=== PATIENT | female | born 1985 | race Caucasian/White ===

== ENCOUNTER 2017-11-27 13:47 | Emergency (ER) | payer SELFPAY ==
[2017-11-27] MEDS ORDERED: ACETAMINOPHEN 325 MG TABLET PO ONE (14:10)
[2017-11-27] MEDS ORDERED: LIDOCAINE 1% INJ-PF (10 MG/ML) 30 ML SDV INFIL ONE (14:41)
--- NOTE | 2017-11-27 14:43 | ER Document Report ---
ED Medical Screen (RME) - General Chief Complaint: Finger Injury Stated Complaint: LEFT MIDDLE FINGER INJURY Time Seen by Provider: 11/27/17 14:41 Notes: pt cut finger with utility knife TRAVEL OUTSIDE OF THE [place] IN LAST 30 DAYS: No - Related Data Allergies/Adverse Reactions: No Known Allergies Allergy (Unverified 11/27/17 14:04) Past Medical History - Social History Chew tobacco use (# tins/day): No Frequency of alcohol use: None Drug Abuse: None Renal/ Medical History: Denies: Hx Peritoneal Dialysis Physical Exam - Vital signs Vitals: Temp Pulse Resp BP Pulse Ox 97.8 F 62 28 H 127/72 H 98 11/27/17 14:04 11/27/17 14:04 11/27/17 14:04 11/27/17 14:04 11/27/17 14:04 Course - Vital Signs Vital signs: Temp Pulse Resp BP Pulse Ox 97.8 F 62 28 H 127/72 H 98 11/27/17 14:04 11/27/17 14:04 11/27/17 14:04 11/27/17 14:04 11/27/17 14:04
[2017-11-27] MEDS ORDERED: HYDROCODONE/ACETAMINOPHEN 5-325 MG TABLET PO ONE (14:50)
--- NOTE | 2017-11-27 14:54 | ER Document Report ---
HPI - HPI Onset: Just prior to arrival Onset/Duration: Sudden Quality of pain: Sharp Pain Level: 4 Context: Patient states that she cut her left fourth finger with a utility knife while at home. Patient states that her tetanus is currently up-to-date. Associated Symptoms: Other - Finger laceration Exacerbated by: Denies Relieved by: Denies Similar symptoms previously: No Recently seen / treated by doctor: No - ROS ROS below otherwise negative: Yes Systems Reviewed and Negative: Yes All other systems reviewed and negative - CONSTITUTIONAL Constitutional: DENIES: Fever - MUSCULOSKELETAL Musculoskeletal: REPORTS: Extremity pain - DERM Skin Color: Normal Skin Problems: Laceration Past Medical History - General Information source: Patient - Social History Smoking Status: Current Every Day Smoker Chew tobacco use (# tins/day): No Frequency of alcohol use: None Drug Abuse: None Occupation: [employer] Lives with: Family Family History: Reviewed & Not Pertinent Patient has suicidal ideation: No Patient has homicidal ideation: No - Medical History Medical History: Negative Renal/ Medical History: Denies: Hx Peritoneal Dialysis Surgical Hx: Negative Vertical Provider Document - CONSTITUTIONAL Agree With Documented VS: Yes Exam Limitations: No Limitations General Appearance: WD/WN, No Apparent Distress - INFECTION CONTROL TRAVEL OUTSIDE OF THE [place] IN LAST 30 DAYS: No - HEENT HEENT: Atraumatic, Normocephalic - NECK Neck: Normal Inspection - RESPIRATORY Respiratory: No Respiratory Distress - CARDIOVASCULAR Pulses: Normal: Radial - MUSCULOSKELETAL/EXTREMETIES Musculoskeletal/Extremeties: MAEW, Tender - Right fourth finger tip injury involving nail, No Edema. negative: Eccymosis - NEURO Level of Consciousness: Awake, Alert, Appropriate Motor/Sensory: No Motor Deficit - DERM Integumentary: Warm, Dry, Laceration - Avulsion laceration to distal tip of right fourth finger measuring 1.5 cm x .75 cm, no active bleeding, lateral margin of fingernail avulsed Course - Vital Signs Vital signs: Temp Pulse Resp BP Pulse Ox 97.8 F 62 28 H 127/72 H 98 11/27/17 14:04 11/27/17 14:04 11/27/17 14:04 11/27/17 14:04 11/27/17 14:04 Discharge - Discharge Clinical Impression: Laceration of finger Qualifiers: Encounter type: initial encounter Finger: ring finger Damage to nail status: with damage Foreign body presence: without foreign body Laterality: left Qualified Code(s): S61.315A - Laceration without foreign body of left ring finger with damage to nail, initial encounter Condition: Stable Disposition: HOME, SELF-CARE Instructions: Avulsion Injury ([facility]), Dressing Instructions for Open Wounds ([facility] ) Additional Instructions: return as needed for any new or worsening symptoms follow up with hand specialist for any continued problems keep wound covered as it continues to heal Prescriptions: Hydrocodone/Acetaminophen [[place] 5-325 Tablet] 1 each PO Q4 PRN #8 tablet PRN Reason: Referrals: ABELINO MICHAUD DO [ACTIVE STAFF] - Follow up as needed
[2017-11-27 15:13] VITALS: BP 134/85
== END 2017-11-27 15:10 | disposition home or self-care (01) ==
LOC: ER 13:47
DX: S61.315A Laceration without foreign body of left ring finger with damage to nail, initial encounter (principal); W26.0XXA Contact with knife, initial encounter; F17.200 Nicotine dependence, unspecified, uncomplicated
CPT/HCPCS: 99282

== ENCOUNTER 2020-03-03 03:09 | Inpatient (IN) | payer MEDICAID ==
[2020-03-03] MEDS ORDERED: MISOPROSTOL 0.2 MG TABLET ONE ×4 (03:14→13:51)
[2020-03-03] MEDS ORDERED: OXYTOCIN 10 UNIT/ML VIAL ONE (03:14)
[2020-03-03] MEDS ORDERED: OXYTOCIN/0.9 % SODIUM CHLORIDE 30 UNIT/500 ML RTUINJ ONE ×2 (03:15→13:53)
[2020-03-03] MEDS ORDERED: LIDOCAINE 1% INJ-PF (10 MG/ML) 30 ML SDV ONE (03:15)
[2020-03-03] MEDS ORDERED: RINGERS SOLUTION,LACTATED 1,000 ML IV ONE (03:18)
[2020-03-03] MEDS ORDERED: RINGERS SOLUTION,LACTATED 1,000 ML IV PRN (03:18)
[2020-03-03] MEDS ORDERED: PENICILLIN G POTASSIUM 5,000,000 UNIT in DEXTROSE 5%-WATER 100 ML IV ONE (03:22)
[2020-03-03] MEDS ORDERED: PENICILLIN G-K 5 MILLION UNIT VIAL ONE ×2 (03:26→07:20)
--- NOTE | 2020-03-03 03:31 | Admission Physical ---
Datetime Report Generated by CPN: 03/03/2020 03:31 CURRENT ADMISSION Chief Complaint: Uterine Contractions Indication for Induction: Not Applicable Admit Impression : Term, Intrauterine ; Active Labor Admit Plan: Admit to Unit; Initiate Labor Protocol ALLERGIES Medication Allergies: No Known Allergies (11/27/2017) PHYSICAL EXAM General: Normal HEENT: Normal Neurologic: Normal Thyroid: Deferred Heart: Normal Lungs: Normal Breast: Deferred Back: Normal Abdomen: Normal Genitourinary Exam: Normal Extremities: Normal DTRs: Normal Pelvic Type: Adequate Physical Exam Comments: pelvis proven to 6#14oz Vital Signs: Reviewed VAGINAL EXAM Dilatation: 4 Effacement: 90 Station: -2 MEMBRANES Membranes: Intact FETUS A Monitoring: External US FHR- Baseline: 150 Variability: Minimal - Undetectable to <=5bpm Accelerations: 10X10 Decelerations: None FHR Category: Category II Presentation: Vertex Admit Comment: 35yo at 38+1ega presents with ctx q 2 minutes and appeared possible imminent delivery. However, patient is 4cm. Will admit and start pcn for GBS positive. Pitocin if needed for augmentation. AMA. patient was late entry to care for . H/o anxiety and depression. brand planner will be placed. ANticipate INFORMED CONSENT Informed Consent Obtained: Vaginal Delivery; Risks, Benefits and Alternatives Discussed Signature: with User ID: [email or web address]
[2020-03-03 03:47] LABS: HEMATOCRIT 37.6 % (36.0-47.0); HEMOGLOBIN 12.9 g/dL (12.0-15.5); MEAN CORPUSCULAR HEMOGLOBIN 29.3 pg (27.0-33.4); MEAN CORPUSCULAR HGB CONC 34.3 g/dL (32.0-36.0); MEAN CORPUSCULAR VOLUME 86 fl (80-97); PLATELET COUNT 265 10^3/uL (150-450); RED BLOOD COUNT 4.39 10^6/uL (3.72-5.28); RED CELL DISTRIBUTION WIDTH 14.4 % (11.5-14.0); WHITE BLOOD COUNT 24.9 10^3/uL (4.0-10.5)
[2020-03-03 04:07] LABS: ABSOLUTE LYMPHOCYTES# (MANUAL) 3.2 10^3/uL (0.5-4.7); BASOPHILS % (MANUAL) 0 % (0-2); EOSINOPHILS % (MANUAL) 0 % (0-6); LYMPHOCYTES % (MANUAL) 13 % (13-45); MONOCYTES % (MANUAL) 4 % (3-13); SEGMENTED NEUTROPHILS % (MAN) 83 % (42-78); TOTAL CELLS COUNTED 100
[2020-03-03 04:08] LABS: PLATELET COMMENT ADEQUATE; RBC MORPHOLOGY COMMENT NORMO-CYTIC/CHROMIC; TOXIC VACUOLATION PRESENT
[2020-03-03] MEDS ORDERED: EPHEDRINE SULFATE INJ 50 MG/1 ML AMPULE ONE (04:22)
[2020-03-03] MEDS ORDERED: BUPIVACAINE HCL 0.25 % INJ/PF (2.5 MG/1 ML) 30 ML VIAL ONE (04:23)
[2020-03-03] MEDS ORDERED: FENTANYL/BUPIVACAINE/NS/PF 300 MCG/150 ML RTUINJ EPI ONE (04:23)
[2020-03-03] MEDS ORDERED: FENTANYL CITRATE INJ/PF 100 MCG/2 ML AMPUL ONE (04:32)
[2020-03-03 05:13] LABS: APPEARANCE,URINE CLEAR; BILIRUBIN,URINE NEGATIVE (NEGATIVE); COLOR,URINE AMBER; GLUCOSE, URINE NEGATIVE (NEGATIVE); KETONES,URINE TRACE mg/dL (NEGATIVE); LEUKOCYTE ESTERASE,URINE NEGATIVE (NEGATIVE); NITRITE,URINE NEGATIVE (NEGATIVE); PROTEIN,URINE 100 mg/dL (NEGATIVE); URINE SPECIFIC GRAVITY 1.038; UROBILINOGEN,URINE NEGATIVE mg/dL (<2.0)
[2020-03-03 05:29] LABS: URINE BARBITURATES SCREEN NEGATIVE; URINE COCAINE SCREEN NEGATIVE; URINE METHADONE SCREEN NEGATIVE; URINE PHENCYCLIDINE SCREEN NEGATIVE
[2020-03-03 05:41] LABS: URINE BENZODIAZEPINES SCREEN UNCONFIRMED POSITIVE; URINE MARIJUANA (THC) SCREEN UNCONFIRMED POSITIVE
[2020-03-03] MEDS: PENICILLIN G POTASSIUM 2,500,000 UNIT in DEXTROSE 5%-WATER 50 ML IV SCH ×2 (07:41→12:49)
[2020-03-03] MEDS ORDERED: DIPHENHYDRAMINE HCL 50 MG/ML VIAL ONE (09:35)
[2020-03-03] MEDS ORDERED: DIPHENHYDRAMINE HCL 50 MG/ML VIAL IV ONE (09:36)
--- NOTE | 2020-03-03 09:37 | L&D Progress Notes ---
PROGRESS NOTES Datetime Report Generated by CPN: 03/03/2020 09:37 PROGRESS NOTE Impression: Normal Progression of Labor Procedures: Sterile Vag Exam Plan: Continue Present Management; Anticipate Vaginal Delivery Informed Consent Obtained: Vaginal Delivery; Risks, Benefits and Alternatives Discussed Vital Signs : Reviewed; Within Normal Limits Comment: Pt w/ increased rectal pressure, uncomfortable now. VE Ant lip/ 0. Feels like slight cervical edema forming. Will give some Benadryl for that. Pt encouraged to breathe through her contractions and frequent position changes. GBS +. Meconium stained fluid noted on chema-pad now. Attending MD is Dr Laura. VAGINAL EXAM Dilatation: 4 Effacement: 90 Station: -2 LAST VAGINAL EXAM-NURSING Nursing Exam Dilitation: Ant Lip Nursing Exam Effacement: 90 Nursing Exam Station: 0 MEMBRANES Membranes: Ruptured Amniotic Fluid Color: Meconium, Particulate FETUS A FHR - Baseline: 135 Monitoring: External US Variability: Moderate 6-25bpm Accelerations: 15X15 FHR Comments: occassional variable, but non-repeatitive Presentation: Vertex SIGNATURE SIGNATURE: [id number];[id number] Assignment: Francis Laura MD Signature: with User ID: [email or web address] : with User ID: Jaiden
[2020-03-03] MEDS ORDERED: PSEUDOEPHEDRINE HCL 30 MG TABLET PO PRN (10:19)
[2020-03-03] MEDS ORDERED: DIPH/PERTUSS(ACELL)/TETANUS VAC/PF 0.5 ML SYR (>=10YO) IM PRN ×2 (10:19→13:00)
[2020-03-03] MEDS ORDERED: MEASLES,MUMPS&RUBELLA VACC/PF 0.5 ML VIAL SUBCUT PRN ×2 (10:19→13:00)
[2020-03-03] MEDS ORDERED: ZOLPIDEM TARTRATE 5 MG TABLET PO PRN (10:19)
[2020-03-03] MEDS ORDERED: DIBUCAINE 1% OINTMENT 28 GM TP PRN (10:19)
[2020-03-03] MEDS ORDERED: PROMETHAZINE HCL 25 MG TABLET PO PRN (10:19)
[2020-03-03] MEDS ORDERED: BENZOCAINE/MENTHOL AEROSOL SPRAY 56 ML TOP PRN (10:19)
[2020-03-03] MEDS ORDERED: PROMETHAZINE HCL INJ 25 MG/1 ML VIAL IV PRN ×2 (10:19→13:30)
[2020-03-03] MEDS ORDERED: PROMETHAZINE HCL 25 MG SUPP.RECT PR PRN (10:19)
[2020-03-03] MEDS ORDERED: MAGNESIUM HYDROXIDE SUSP 30 ML UDCUP PO PRN (10:19)
[2020-03-03] MEDS ORDERED: NA PHOS,M-B/NA PHOS,DI-BA (ADULT) 133 ML ENEMA PR PRN (10:19)
[2020-03-03] MEDS ORDERED: OXYTOCIN/0.9 % SODIUM CHLORIDE 30 UNIT/500 ML RTUINJ IV PRN (10:19)
[2020-03-03] MEDS ORDERED: DIPHENHYDRAMINE HCL 25 MG CAPSULE PO PRN (10:19)
[2020-03-03] MEDS ORDERED: ACETAMINOPHEN 650 MG SUPP.RECT PR PRN (10:19)
[2020-03-03] MEDS ORDERED: GLYCERIN/WITCH HAZEL LEAF 1 EACH MED..WIPE TP PRN (10:19)
--- NOTE | 2020-03-03 10:25 | Warning Signs in Babies ---
VOD Warning Signs Datetime Report Generated by [facility]: 03/03/2020 10:25 VOD#608 -Warning Signs in Babies: Needs to be viewed. (03/03/2020 03:32:Rehana Reyes RN)
--- NOTE | 2020-03-03 10:42 | Delivery Summary ---
Del Sum A-C Datetime Report Generated by CPN: 03/03/2020 10:42 DELIVERY PERSONNEL DELIVERY PERSONNEL: [id number] Delivery Doctor:: Marly Lafleur CNM Labor and Delivery Nurse:: Rehana Reyes RNagri business agent Nurse:: DUY Mari Nursery Nurse:: Ania Robins RN Nursery Nurse:: BRADLEY Matthewsub Tech/ALESSANDRO: Reyna Briones CNA II MATERNAL INFORMATION Delivery Anesthesia: Epidural Medications After Delivery: Pitocin Bolus-Please Comment; Pitocin 30 Units in 500ml NS/D5W Delivery QBL: 50 Maternal Complications: None Provider Comments: of VMI, delivered GEORGI, crying and placed on pts abdoman in stable condtion. Short cord noted, thick meconium at delivery. Peds present. Cord clamped and cut. Cord blood obtained. Placenta S/C/I, thick meconium staining noted, will send to pathology. IV Pitocin infusing. FF w/ decreased lochia. Apgars 8,9. Mother and baby left in stable condition, skin to skin Pt plans to bottlefeed. Attending MD is Dr Laura LABOR SUMMARY EDC: 03/15/2020 00:00 No. Babies in Womb: 1 Attempted: No Labor Anesthesia: Epidural LABOR INFORMATION Reason for Induction: Not Applicable Onset of Labor: 03/03/2020 03:18 Complete Dilatation: 03/03/2020 10:02 Oxytocin: N/A Group B Beta Strep: Positive Antibiotics # of Doses: 2 Antibiotics Time of Last Dose: 740 Name of Antibiotic Given: penicillin G Steroids Given: None Reason Steroids Not Administered: Not Applicable MEMBRANES Membranes Rupture Method: Spontaneous Rupture of Membranes: 03/02/2020 23:00 Length of Rupture (hr): 11.05 Amniotic Fluid Color: Heavy Meconium Amniotic Fluid Amount: Moderate Amniotic Fluid Odor: Normal STAGES OF LABOR Stage 1 hr: 6 Stage 1 min: 44 Stage 2 hr: 0 Stage 2 min: 1 Stage 3 hr: 0 Stage 3 min: 3 Total Time in Labor hr: 6 Total Time in Labor min: 48 VAGINAL DELIVERY Laceration #1: Perineal Laceration Extension #1: First Degree Other Laceration: no repair needed Laceration Repair: No Sponge Count Correct: N/A Sharps Count Correct: N/A CSECTION DELIVERY Primary Indication: N/A Secondary Indication: N/A CSection Incidence: N/A Labor: N/A Elective: N/A CSection Incision: N/A BABY A INFORMATION Delivery Date/Time: 03/03/2020 10:03 Method of Delivery: Vaginal Nurse Controlled Delivery: No Born in Route : No : N/A Forceps: N/A Vacuum Extraction: N/A Shoulder Dystocia : No PRESENTATION/POSITION BABY A Presentation: Cephalic Cephalic Presentation: Vertex Vertex Position: Left Occipital Anterior Breech Presentation: N/A PLACENTA INFORMATION BABY A Placenta Delivery Time : 03/03/2020 10:06 Placenta Method of Delivery: Spontaneous Placenta Status: Delivered SCORES BABY A Heart Rate 1 min: >100 bpm Resp Effort 1 min: Good Cry Reflex Irritability 1 min: Cough or Sneeze or Pulls Away Muscle Tone 1 min: Active Motion Color 1 min: Body [place], Extremities Blue Resuscitation Effort 1 min: Tactile Stimulation SCORE 1 MIN: 9 Heart Rate 5 min: >100 bpm Resp Effort 5 min: Good Cry Reflex Irritability 5 min: Cough or Sneeze or Pulls Away Muscle Tone 5 min: Active Motion Color 5 min: Body [place], Extremities Blue SCORE 5 MIN: 9 INFORMATION BABY A Gestational Age at Delivery: 38.2 Gestational Status: Early Term- 37- 38.6 Weeks Infant Outcome : Liveborn Condition : Stable Sex: Male IDENTIFICATION BABY A Infant Verification Date/Time: 03/03/2020 10:21 ID Band Number: [id number] Mother's Name Verified: Yes Infant RN Verifying : BRADLEY Varela Additional Verifying Personnel: BRADLEY Hernandez WEIGHT/LENGTH BABY A Birthweight (gm): 3048 Infant Weight (lb): 6 Weight (oz): 12 Length (in): 19.00 Length (cm): 48.26 CORD INFORMATION BABY A No. Cord Vessels: 3 Nuchal Cord : N/A Cord Blood Taken: Yes-For Storage (Mom's Blood type +) Infant Suction: Mouth ASSESSMENT BABY A Infant Complications: Multiple Variable Decels; Meconium Infant Complications- Other: short cord Physical Findings at Delivery: Molding of the Head Respirations: Appears Normal Skin to Skin: Yes Voice Professor/ALS Called : No Infant Care By: t Flo RN Transferred To: Remains with Mother BABY B INFORMATION : N/A SIGNATURES Assignment: Francis Laura MD Signature: with User ID: Jaiden : with User ID: Jaiden
[2020-03-03] MEDS ORDERED: IBUPROFEN 800 MG TABLET ONE (10:55)
[2020-03-03] MEDS: IBUPROFEN 800 MG TABLET PO SCH ×3 (10:56→23:04)
[2020-03-03] MEDS ORDERED: BENZOCAINE/MENTHOL AEROSOL SPRAY 56 ML ONE (11:47)
[2020-03-03] MEDS ORDERED: MISOPROSTOL 0.2 MG TABLET PO ONE (13:30)
[2020-03-03] MEDS: ACETAMINOPHEN WITH CODEINE #3 TABLET PO PRN ×3 (14:04→23:03)
[2020-03-03] MEDS: DOCUSATE SODIUM 100 MG CAPSULE PO SCH (18:33)
[2020-03-03] MEDS: FERROUS SULFATE 325 MG TABLET PO SCH (18:33)
[2020-03-03] MEDS: FAMOTIDINE 20 MG TABLET PO SCH (23:03)
[2020-03-04] MEDS: ACETAMINOPHEN WITH CODEINE #3 TABLET PO PRN ×2 (03:45→23:55)
[2020-03-04] MEDS: IBUPROFEN 800 MG TABLET PO SCH ×3 (06:18→22:50)
[2020-03-04 07:45] LABS: HEMATOCRIT 25.7 % (36.0-47.0); MEAN CORPUSCULAR HEMOGLOBIN 29.3 pg (27.0-33.4); MEAN CORPUSCULAR HGB CONC 33.3 g/dL (32.0-36.0); MEAN CORPUSCULAR VOLUME 88 fl (80-97); PLATELET COUNT 205 10^3/uL (150-450); RED BLOOD COUNT 2.92 10^6/uL (3.72-5.28); RED CELL DISTRIBUTION WIDTH 14.3 % (11.5-14.0); WHITE BLOOD COUNT 17.6 10^3/uL (4.0-10.5)
[2020-03-04 07:46] LABS: HEMOGLOBIN 8.6 g/dL (12.0-15.5)
[2020-03-04] MEDS: FERROUS SULFATE 325 MG TABLET PO SCH ×2 (10:24→18:11)
[2020-03-04] MEDS: DOCUSATE SODIUM 100 MG CAPSULE PO SCH ×2 (10:24→18:11)
[2020-03-04] MEDS: FAMOTIDINE 20 MG TABLET PO SCH ×2 (10:24→22:50)
[2020-03-04] MEDS: SENNOSIDES/DOCUSATE 8.6-50 MG 1 EACH TABLET PO SCH (10:24)
[2020-03-04] MEDS: PRENATAL VITAMIN W DHA CAPSULE PO SCH (10:24)
[2020-03-05] MEDS: ACETAMINOPHEN WITH CODEINE #3 TABLET PO PRN (04:08)
[2020-03-05] MEDS: IBUPROFEN 800 MG TABLET PO SCH ×2 (05:15→15:58)
[2020-03-05 07:44] VITALS: BP 126/77
--- NOTE | 2020-03-05 09:24 | PDOC PROGRESS REPORT ---
Subjective-OB Progress Note for:: 03/05/20 Subjective: Doing well, ready to go home, baby doing better, unsure if baby can go Physical Exam (OB) Vital Signs: Temp Pulse Resp BP Pulse Ox 98.1 F 82 18 126/77 H 100 03/05/20 07:17 03/05/20 07:17 03/05/20 07:17 03/05/20 07:17 03/05/20 07:17 Intake & Output 03/04/20 03/05/20 03/06/20 06:59 06:59 06:59 Intake Total 1000 Output Total 1314 Balance -314 - PIH/Pre-Eclampsia DTR's: 1 + Clonus: Negative Headache: Absent Epigastric Pain: No Visual Changes: No - Lochia Lochia Amount: Scant < 10 ml Lochia Color: Rubra/Red - Abdomen Description: Tender, Soft, Round Hernia Present: No Fundal Description: Firm, Midline Fundal Height: u/u - u/2 Objective-Diagnostic Laboratory: 03/04/20 07:04 Assessment and Plan(PN) - Assessment and Plan (1) Anemia due to blood loss Is this a current diagnosis for this admission?: Yes (2) Meconium staining Is this a current diagnosis for this admission?: Yes (3) (normal spontaneous vaginal delivery) Is this a current diagnosis for this admission?: Yes (4) Carrier of group B Streptococcus Is this a current diagnosis for this admission?: Yes (6) Late care affecting Qualifiers: Trimester: unspecified trimester Qualified Code(s): O09.30 - Supervision of with insufficient care, unspecified trimester Is this a current diagnosis for this admission?: Yes - Time Spent with Patient Time with patient: Less than 15 minutes Medications reviewed and adjusted accordingly: Yes - Disposition Anticipated Discharge: Home Within: within 24 hours - home today
--- NOTE | 2020-03-05 09:30 | PDOC DISCHARGE SUMMARY ---
Impression - Admit/DC Date/PCP Admission Date/Primary Care Provider: 03/03/20 03:14 TARA CRUZ MD Discharge Date: 03/05/20 - Discharge Diagnosis (1) Anemia due to blood loss Is this a current diagnosis for this admission?: Yes (2) Meconium staining Is this a current diagnosis for this admission?: Yes (3) (normal spontaneous vaginal delivery) Is this a current diagnosis for this admission?: Yes (4) Carrier of group B Streptococcus Is this a current diagnosis for this admission?: Yes (6) Late care affecting Is this a current diagnosis for this admission?: Yes - Additional Information Resuscitation Status: Full Code Discharge Diet: As Tolerated, Regular Discharge Activity: Activity As Tolerated, Pelvic Rest Referrals: TARA CRUZ MD [Primary Care Provider] - ([facility] 4 weeks) Home Medications: Prenat 115/Iron Fum/Folic/Dss [ 19 Tablet] 1 tab PO DAILY 03/03/20 HPI Gestational Age: 38.2 Reason(s) for Admission: Onset of Labor, PROM, Group B Strep Positive Procedures: Ultrasound Intrapartum Procedure(s): Spontaneous Vaginal Delivery Intrapartum Procedure Note: thick meconium Complication(s): Laceration-Perineal Laceration-Degree: 1st Hospital Course Hospital Course: routine Results Laboratory Results: WBC 17.6 10^3/uL (4.0-10.5) H 03/04/20 07:04 RBC 2.92 10^6/uL (3.72-5.28) L 03/04/20 07:04 Hgb 8.6 g/dL (12.0-15.5) L D 03/04/20 07:04 Hct 25.7 % (36.0-47.0) L 03/04/20 07:04 MCV 88 fl (80-97) 03/04/20 07:04 MCH 29.3 pg (27.0-33.4) 03/04/20 07:04 MCHC 33.3 g/dL (32.0-36.0) 03/04/20 07:04 RDW 14.3 % (11.5-14.0) H 03/04/20 07:04 Plt Count 205 10^3/uL (150-450) 03/04/20 07:04 Lymph % (Auto) Not Reportable 03/03/20 03:27 [place] % (Auto) Not Reportable 03/03/20 03:27 Eos % (Auto) Not Reportable 03/03/20 03:27 Baso % (Auto) Not Reportable 03/03/20 03:27 Absolute Neuts (auto) Not Reportable 03/03/20 03:27 Absolute Lymphs (auto) Not Reportable 03/03/20 03:27 Absolute Monos (auto) Not Reportable 03/03/20 03:27 Absolute Eos (auto) Not Reportable 03/03/20 03:27 Absolute Basos (auto) Not Reportable 03/03/20 03:27 Total Counted 100 03/03/20 03:27 Seg Neutrophils % Not Reportable 03/03/20 03:27 Seg Neuts % (Manual) 83 % (42-78) H 03/03/20 03:27 Lymphocytes % (Manual) 13 % (13-45) 03/03/20 03:27 Monocytes % (Manual) 4 % (3-13) 03/03/20 03:27 Eosinophils % (Manual) 0 % (0-6) 03/03/20 03:27 Basophils % (Manual) 0 % (0-2) 03/03/20 03:27 Abs Neuts (Manual) 20.7 10^3/uL (1.7-8.2) H 03/03/20 03:27 Abs Lymphs (Manual) 3.2 10^3/uL (0.5-4.7) 03/03/20 03:27 Abs Monocytes (Manual) 1.0 10^3/uL (0.1-1.4) 03/03/20 03:27 Absolute Eos (Manual) 0.0 10^3/uL (0.0-0.6) 03/03/20 03:27 Abs Basophils (Manual) 0.0 10^3/uL (0.0-0.2) 03/03/20 03:27 Toxic Vacuolation PRESENT 03/03/20 03:27 Platelet Comment ADEQUATE 03/03/20 03:27 RBC Morph Comment NORMO-CYTIC/CHROMIC 03/03/20 03:27 Urine Color RUBY 03/03/20 04:59 Urine Appearance CLEAR 03/03/20 04:59 Urine pH 5.0 (5.0-9.0) 03/03/20 04:59 Ur Specific [place] 1.038 03/03/20 04:59 Urine Protein 100 mg/dL (NEGATIVE) H 03/03/20 04:59 Urine Glucose (UA) NEGATIVE mg/dL (NEGATIVE) 03/03/20 04:59 Urine Ketones TRACE mg/dL (NEGATIVE) H 03/03/20 04:59 Urine Blood NEGATIVE (NEGATIVE) 03/03/20 04:59 Urine Nitrite NEGATIVE (NEGATIVE) 03/03/20 04:59 Urine Bilirubin NEGATIVE (NEGATIVE) 03/03/20 04:59 Urine Urobilinogen NEGATIVE mg/dL (<2.0) 03/03/20 04:59 Ur Leukocyte Esterase NEGATIVE (NEGATIVE) 03/03/20 04:59 Urine Ascorbic Acid NEGATIVE (NEGATIVE) 03/03/20 04:59 Membranes Rupture POSITIVE (NEGATIVE) H 03/03/20 05:55 Urine Opiates Screen NEGATIVE 03/03/20 04:59 Urine Methadone Screen NEGATIVE 03/03/20 04:59 Ur Barbiturates Screen NEGATIVE 03/03/20 04:59 Ur Phencyclidine Scrn NEGATIVE 03/03/20 04:59 Ur Amphetamines Screen 03/03/20 04:59 U Benzodiazepines Scrn UNCONFIRMED POSITIVE 03/03/20 04:59 Urine Cocaine Screen NEGATIVE 03/03/20 04:59 U Marijuana (THC) Screen UNCONFIRMED POSITIVE 03/03/20 04:59 RPR NONREACTIVE (NONREACTIVE) 03/03/20 03:27 Blood Type O POSITIVE 03/03/20 03:27 Antibody Screen NEGATIVE 03/03/20 03:27 Plan Health Concerns: anemia, smoking Plan of Treatment: d/c home, no smoking around baby, take iron BID, rev S&S to report, depression/anxiety Goals: no complications Time Spent: Less than 30 Minutes
[2020-03-05] MEDS: FERROUS SULFATE 325 MG TABLET PO SCH (09:55)
[2020-03-05] MEDS: DOCUSATE SODIUM 100 MG CAPSULE PO SCH (09:56)
[2020-03-05] MEDS: SENNOSIDES/DOCUSATE 8.6-50 MG 1 EACH TABLET PO SCH (09:56)
[2020-03-05] MEDS: PRENATAL VITAMIN W DHA CAPSULE PO SCH (09:56)
[2020-03-05] MEDS: FAMOTIDINE 20 MG TABLET PO SCH (09:56)
== END 2020-03-05 17:35 | disposition home or self-care (01) | DRG 807 ==
LOC: LC 03:09 → LR 03:14 → 2S 12:17
PROVIDERS: ADMIT Obstetrics & Gynecology Gynecology; ATTEND Obstetrics & Gynecology Gynecology
PROC: 10E0XZZ Delivery of Products of Conception, External Approach (ICD-10-PCS; principal; 2020-03-03)
DX: O99.824 Streptococcus B carrier state complicating childbirth (principal); Z37.0 Single live birth; O99.344 Other mental disorders complicating childbirth; F41.8 Other specified anxiety disorders; O69.3XX0 Labor and delivery complicated by short cord, not applicable or unspecified; O77.0 Labor and delivery complicated by meconium in amniotic fluid; O70.0 First degree perineal laceration during delivery; O76 Abnormality in fetal heart rate and rhythm complicating labor and delivery; O99.334 Smoking (tobacco) complicating childbirth; F17.210 Nicotine dependence, cigarettes, uncomplicated; O99.02 Anemia complicating childbirth; D50.0 Iron deficiency anemia secondary to blood loss (chronic); Z3A.38 38 weeks gestation of pregnancy
CPT/HCPCS: 1967; 36415; 80307; 81005; 84112; 85025; 85027; 86592; 86850; 86900; 86901; 88307; 94760; G0480; J1200; J2540; J2590; J3010; J3490

== ENCOUNTER 2020-04-06 18:22 | Emergency (ER) | payer MEDICAID ==
[2020-04-06 18:31] VITALS: BP 152/96
--- NOTE | 2020-04-06 19:08 | ER Document Report ---
ED Medical Screen (RME) - General Stated Complaint: LEG SWELLING Notes: Patient is a 35-year-old white female who is about 2 weeks status post vaginal delivery with some clotting after delivery who presents the emergency department chief complaint of bilateral lower extremity swelling and pain. She called her OB who advised her blood pressure was elevated and to come to the emergency department. She denies having any other test done. States that her provider stated she could not give her a water pill until she was evaluated. Patient denies any chest pain or shortness of breath. No history of DVT or PE. I have treated and performed a rapid initial assessment of this patient. A comprehensive ED assessment and evaluation of the patient, analysis of test results and completion of medical decision making process will be conducted by additional ED providers. PHYSICAL EXAMINATION: GENERAL: Well-appearing, well-nourished and in no acute distress. A&Ox4. Answers questions appropriately. TRAVEL OUTSIDE OF THE [place] IN LAST 30 DAYS: No - Related Data Allergies/Adverse Reactions: No Known Allergies Allergy (Verified 04/06/20 19:06) Past Medical History Renal/ Medical History: Denies: Hx Peritoneal Dialysis Psychiatric Medical History: Reports: Hx Depression Physical Exam - Vital signs Vitals: Temp Pulse Resp BP Pulse Ox 98.3 F 95 19 152/96 H 100 04/06/20 18:30 04/06/20 18:30 04/06/20 18:30 04/06/20 18:30 04/06/20 18:30 Course - Vital Signs Vital signs: Temp Pulse Resp BP Pulse Ox 98.3 F 95 19 152/96 H 100 04/06/20 18:30 04/06/20 18:30 04/06/20 18:30 04/06/20 18:30 04/06/20 18:30
--- NOTE | 2020-04-06 20:38 | RADIOLOGY REPORT (SQ) ---
US LOWER EXTREMITY VEINS HISTORY: Leg pain and swelling. COMPARISON: None. TECHNIQUE: Trejo-scale, color Doppler and spectral Doppler images of the bilateral lower extremity veins were obtained. FINDINGS: The bilateral common femoral, superficial femoral and popliteal veins are patent and compressible. Normal augmentation and color Doppler blood flow in the aforementioned veins. The visualized calf veins are also patent. Diffuse subcutaneous edema is present. IMPRESSION: No DVT in the bilateral lower extremities.
[2020-04-06 20:41] LABS: ABSOLUTE BASOPHILS # (AUTO) 0.1 10^3/uL (0.0-0.2); ABSOLUTE EOSINOPHILS # (AUTO) 0.2 10^3/uL (0.0-0.6); ABSOLUTE LYMPHOCYTES (AUTO) 3.2 10^3/uL (0.5-4.7); ABSOLUTE MONOCYTES (AUTO) 0.6 10^3/uL (0.1-1.4); BASOPHILS % (AUTO) 1.1 % (0-2); EOSINOPHILS % (AUTO) 1.6 % (0-6); HEMATOCRIT 30.3 % (36.0-47.0); HEMOGLOBIN 9.9 g/dL (12.0-15.5); LYMPHOCYTES % (AUTO) 31.7 % (13-45); MEAN CORPUSCULAR HEMOGLOBIN 26.5 pg (27.0-33.4); MEAN CORPUSCULAR HGB CONC 32.8 g/dL (32.0-36.0); MEAN CORPUSCULAR VOLUME 81 fl (80-97); MONOCYTES % (AUTO) 5.6 % (3-13); PLATELET COUNT 503 10^3/uL (150-450); RED BLOOD COUNT 3.74 10^6/uL (3.72-5.28); RED CELL DISTRIBUTION WIDTH 16.9 % (11.5-14.0); TOTAL CELLS COUNTED % (AUTO) 100 %
[2020-04-06 20:44] LABS: INTERNATIONAL RATION (INR) 0.87; PROTHROMBIN TIME 12.1 SEC (11.4-15.4)
[2020-04-06 20:45] LABS: PARTIAL THROMBOPLASTIN TIME 31.1 SEC (23.5-35.8)
[2020-04-06 20:56] LABS: ALKALINE PHOSPHATASE 76 U/L (38-126); ANION GAP 5 (5-19); ASPARTATE AMINO TRANSFERASE 19 U/L (14-36); BILIRUBIN,TOTAL 0.2 mg/dL (0.2-1.3); BLOOD UREA NITROGEN 11 mg/dL (7-20); CARBON DIOXIDE 28 mmol/L (22-30); CHLORIDE 105 mmol/L (98-107); GLUCOSE 106 mg/dL (75-110); POTASSIUM 4.2 mmol/L (3.6-5.0); TOTAL PROTEIN 6.9 g/dL (6.3-8.2)
== END 2020-04-07 04:35 | disposition left against medical advice (07) ==
LOC: ER 18:22
DX: O90.89 Other complications of the puerperium, not elsewhere classified (principal); M79.671 Pain in right foot; M79.672 Pain in left foot; M79.89 Other specified soft tissue disorders; Z53.20 Procedure and treatment not carried out because of patient's decision for unspecified reasons
CPT/HCPCS: 36415; 80053; 85025; 85610; 85730; 93970; 99284

== ENCOUNTER 2020-04-08 13:40 | Emergency (ER) | payer MEDICAID ==
[2020-04-08 14:00] VITALS: BP 146/90
--- NOTE | 2020-04-08 15:05 | EKG REPORT ---
SEVERITY:- NORMAL ECG - SINUS RHYTHM : Confirmed by: Derrick Patel MD 08-Apr-2020 15:04:45
--- NOTE | 2020-04-08 15:13 | ER Document Report ---
ED Medical Screen (RME) - General Chief Complaint: Chest Pain Stated Complaint: CHEST PAIN Time Seen by Provider: 04/08/20 15:01 TRAVEL OUTSIDE OF THE [place] IN LAST 30 DAYS: No - HPI Notes: 04/08/20 15:09 35-year-old female 5 para 3 who is 1 week and a few days vaginal delivery presents to the emergency room for complaints of left-sided chest pain that started last night, pain has been constant since last night, worse when she bends over to put down her baby. Denies any radiation of pain. Denies any shortness of breath, nausea vomiting or diarrhea. Patient reports she is also had bilateral leg swelling for the last 2 weeks, was seen in the emergency room 2 days ago for this leg swelling as well as hypertension, ultrasound was done here which was negative for DVTs, patient eloped prior to being seen by main side provider. Patient states when she does elevate her legs the swelling does go down. Patient gave with a vaginal delivery on March 03, 2020, no issues with her . Denies any fevers or chills. No history of DVTs or PEs. Patient is a smoker. Denies any contraceptive use, recent surgery, long car rides, periods of immobilization Patient's PERC score is 0 (she has bilateral lower leg swelling, not unilateral) Patient's vital signs are stable I have greeted and performed a rapid initial assessment of this patient. A comprehensive ED assessment and evaluation of the patient, analysis of test results and completion of the medical decision making process will be conducted by additional ED providers. PHYSICAL EXAMINATION: GENERAL: Well-appearing, well-nourished and in no acute distress. HEAD: Atraumatic, normocephalic. EYES: Pupils equal round extraocular movements intact, conjunctiva are normal. NECK: Normal range of motion CV: s1, s2 regular LUNGS: No respiratory distress Musculoskeletal: Normal range of motion NEUROLOGICAL: Normal speech, normal gait. SKIN: Warm, Dry, normal turgor, no rashes or lesions noted. Bilateral leg swelling, nonpitting. distal pulses +2 in BLE equally - Related Data Allergies/Adverse Reactions: No Known Allergies Allergy (Verified 04/06/20 19:06) Past Medical History Renal/ Medical History: Denies: Hx Peritoneal Dialysis Psychiatric Medical History: Reports: Hx Depression Physical Exam - Vital signs Vitals: Temp Pulse Resp BP Pulse Ox 98.3 F 88 18 146/90 H 100 04/08/20 13:58 04/08/20 13:58 04/08/20 13:58 04/08/20 13:58 04/08/20 13:58 Course - Vital Signs Vital signs: Temp Pulse Resp BP Pulse Ox 98.3 F 88 18 146/90 H 100 04/08/20 13:58 04/08/20 13:58 04/08/20 13:58 04/08/20 13:58 04/08/20 13:58
--- NOTE | 2020-04-08 15:51 | RADIOLOGY REPORT (SQ) ---
EXAM DESCRIPTION: CHEST 2 VIEWS IMAGES COMPLETED DATE/TIME: 04/08/2020 3:37 pm REASON FOR STUDY: chest pain COMPARISON: 10/13/2009 EXAM PARAMETERS: NUMBER OF VIEWS: two views TECHNIQUE: Digital Frontal and Lateral radiographic views of the chest acquired. RADIATION DOSE: NA LIMITATIONS: none FINDINGS: LUNGS AND PLEURA: No opacities, masses or pneumothorax. No pleural effusion. MEDIASTINUM AND HILAR STRUCTURES: No masses or contour abnormalities. HEART AND VASCULAR STRUCTURES: Heart normal size. No evidence for failure. BONES: No acute findings. HARDWARE: None in the chest. OTHER: No other significant finding. IMPRESSION: NO ACUTE RADIOGRAPHIC FINDING IN THE CHEST. TECHNICAL DOCUMENTATION: JOB ID: [id number] 2010 [employer]- All Rights Reserved Reading location - IP/workstation name: [email or web address]
[2020-04-08 15:54] LABS: APPEARANCE,URINE CLEAR; BILIRUBIN,URINE NEGATIVE (NEGATIVE); COLOR,URINE STRAW; GLUCOSE, URINE NEGATIVE (NEGATIVE); KETONES,URINE NEGATIVE (NEGATIVE); LEUKOCYTE ESTERASE,URINE MODERATE (NEGATIVE); NITRITE,URINE NEGATIVE (NEGATIVE); PROTEIN,URINE NEGATIVE (NEGATIVE); URINE SPECIFIC GRAVITY 1.005; UROBILINOGEN,URINE NEGATIVE mg/dL (<2.0)
[2020-04-08 15:55] LABS: ABSOLUTE BASOPHILS # (AUTO) 0.1 10^3/uL (0.0-0.2); ABSOLUTE EOSINOPHILS # (AUTO) 0.2 10^3/uL (0.0-0.6); ABSOLUTE LYMPHOCYTES (AUTO) 3.1 10^3/uL (0.5-4.7); ABSOLUTE MONOCYTES (AUTO) 0.6 10^3/uL (0.1-1.4); ABSOLUTE NEUT (AUTO) 4.7 10^3/uL (1.7-8.2); BASOPHILS % (AUTO) 0.9 % (0-2); HEMATOCRIT 30.3 % (36.0-47.0); HEMOGLOBIN 9.8 g/dL (12.0-15.5); LYMPHOCYTES % (AUTO) 35.2 % (13-45); MEAN CORPUSCULAR HGB CONC 32.4 g/dL (32.0-36.0); MEAN CORPUSCULAR VOLUME 80 fl (80-97); MONOCYTES % (AUTO) 7.2 % (3-13); PLATELET COUNT 481 10^3/uL (150-450); RED BLOOD COUNT 3.79 10^6/uL (3.72-5.28); SEGMENTED NEUTROPHILS % (AUTO) 54.7 % (42-78); TOTAL CELLS COUNTED % (AUTO) 100 %; WHITE BLOOD COUNT 8.7 10^3/uL (4.0-10.5)
[2020-04-08 16:01] LABS: ALBUMIN 4.1 g/dL (3.5-5.0); ALKALINE PHOSPHATASE 74 U/L (38-126); ANION GAP 6 (5-19); ASPARTATE AMINO TRANSFERASE 22 U/L (14-36); BILIRUBIN,TOTAL 0.3 mg/dL (0.2-1.3); BLOOD UREA NITROGEN 12 mg/dL (7-20); CARBON DIOXIDE 27 mmol/L (22-30); CHLORIDE 104 mmol/L (98-107); CREATINE KINASE 50 U/L (30-135); GLUCOSE 89 mg/dL (75-110); POTASSIUM 4.3 mmol/L (3.6-5.0)
[2020-04-08 16:08] LABS: CREATINE KINASE MB 0.44 ng/mL (<4.55); NT PRO BNP 178 pg/mL (<125)
[2020-04-08 16:13] LABS: TROPONIN I < 0.012 ng/mL
== END 2020-04-08 19:03 | disposition left against medical advice (07) ==
LOC: ER 13:40
DX: O90.89 Other complications of the puerperium, not elsewhere classified (principal); R07.9 Chest pain, unspecified; M79.89 Other specified soft tissue disorders; Z53.20 Procedure and treatment not carried out because of patient's decision for unspecified reasons
CPT/HCPCS: 36415; 71046; 80053; 81001; 82550; 82553; 83880; 84484; 85025; 93005; 93010; 99281